=== PATIENT | male | born 1960 | race African-American/Black ===

== ENCOUNTER 2016-06-22 04:37 | Emergency (ER) | payer OTHER ==
[2016-06-22 05:10] VITALS: BP 160/90; PULSE 78; TEMP 98.3; BMI 31.6
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
[2016-06-22] MEDS ORDERED: KETOROLAC TROMETHAMINE 60 MG/2 ML VIAL IM ONE (05:20)
[2016-06-22] MEDS ORDERED: KETOROLAC TROMETHAMINE 60 MG/2 ML VIAL ONE (05:25)
== END 2016-06-22 06:49 | disposition home or self-care (01) ==
LOC: JER 04:37
PROC: 3E0233Z Introduction of Anti-inflammatory into Muscle, Percutaneous Approach (ICD-10-PCS; principal; 2016-06-22)
DX: M62.838 Other muscle spasm (principal)
CPT/HCPCS: 99281-25

== ENCOUNTER 2016-06-26 12:30 | Emergency (ER) | payer OTHER ==
[2016-06-26 12:43] VITALS: BMI 31.6
--- NOTE | 2016-06-26 14:03 | PDOC ---
*Physical Exam - Vital Signs Last Vital Signs Temp Pulse Resp BP Pulse Ox 98.2 F 85 18 158/88 100 06/26/16 12:40 06/26/16 12:40 06/26/16 12:40 06/26/16 12:40 06/26/16 12:40 - Physical Exam Comments: 06/26/16 14:03 MIDLEVEL NOTE Pt seen by Midlevel Provider under my direct supervision. Pt interviewed and examined. Ancillary studies reviewed. I agree with plan as outlined by Midlevel Provider. Laboratory Results - last 24 hr 06/26/16 06/26/16 06/26/16 13:40 13:40 13:40 WBC 5.2 RBC 4.41 Hgb 13.1 Hct 39.5 MCV 89.6 MCHC 33.1 RDW 13.8 Plt Count 289 MPV 8.0 Neutrophils % 41.7 L Lymphocytes % 43.8 H Monocytes % 11.4 H Eosinophils % 1.9 Basophils % 1.2 INR 1.04 PTT (Actin FS) 32.6 Sodium 139 Potassium 4.4 Chloride 102 Carbon Dioxide 27 Anion Gap 10 BUN 14 Creatinine 1.1 Creat Clearance w eGFR > 60 Random Glucose 103 Calcium 9.3 Total Bilirubin 0.5 AST 30 ALT 32 Alkaline Phosphatase 73 Creatine Kinase 415 H CK-MB (CK-2) Rel Index Troponin I < 0.02 Total Protein 7.6 Albumin 4.0 06/26/16 13:40 WBC RBC Hgb Hct MCV MCHC RDW Plt Count MPV Neutrophils % Lymphocytes % Monocytes % Eosinophils % Basophils % INR PTT (Actin FS) Sodium Potassium Chloride Carbon Dioxide Anion Gap BUN Creatinine Creat Clearance w eGFR Random Glucose Calcium Total Bilirubin AST ALT Alkaline Phosphatase Creatine Kinase CK-MB (CK-2) Rel Index Cancelled Troponin I Total Protein Albumin 06/26/16 16:32 Chest x-ray NAD CTA chest There is mild fusiform aneurysmal dilatation of the descending aorta, with a 4 cm maximum diameter No aortic dissection is identified Case discussed with Dr. Ricks, who states patient may be discharged after the second troponin and EKG if unchanged. Patient agrees with plan And will follow-up with his PCP and joinery factory worker Dr. Simon. ED Treatment Course - LABORATORY CBC & Chemistry Diagram: 06/26/16 13:40 06/26/16 13:40 *DC/Admit/Observation/Transfer Diagnosis at time of Disposition: Left sided chest pain - Discharge Dispostion Disposition: HOME Condition at time of disposition: Good - Referrals Referrals: Rupinder Dixon MD [Non Staff, Medical] - Williams Silvestre MD [Primary Care Provider] - - Patient Instructions Printed Discharge Instructions: The DASH Diet, DASH Diet Helps Maintain a Healthy Blood Pressure, DI for Atypical Chest Pain Additional Instructions: At this time you have no cardiac emergency and you may follow-up with your joinery factory worker and your PCP as needed. Please continue to take her medication as prescribed and I have enclosed instructions on hypertensive diet as requested
[2016-06-26 14:10] LABS: BASOPHIL 1.2 % (0-2.0); EOSINOPHIL 1.9 % (0-4.5); MCH 29.7 pg (25.7-33.7); MCHC 33.1 g/dl (32.0-35.9); MEAN CELL VOLUME 89.6 fl (80-96); NEUTROPHILS 41.7 % (42.8-82.8); PLATELET COUNT 289 K/MM3 (134-434); RDW 13.8 % (11.9-15.9); WHITE BLOOD COUNT 5.2 K/mm3 (4.0-10.0)
[2016-06-26 14:33] LABS: INR 1.04 (0.82-1.09); PROTHROMBIN TIME (PATIENT) 11.4 SEC (9.98-11.88)
[2016-06-26 14:36] LABS: ACTIVATED PTT 32.6 SECONDS (26.9-34.4)
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
[2016-06-26 15:14] LABS: ALK PHOS 73 U/L (45-117); ANION GAP 10 (8-16); BILIRUBIN,TOTAL 0.5 mg/dL (0.2-1.0); CALCIUM 9.3 mg/dL (8.5-10.1); CO2 27 mmol/L (21-32); CREATININE 1.1 mg/dL (0.7-1.3); GLUCOSE,RANDOM 103 mg/dL (74-106); SGOT/AST 30 U/L (15-37); SGPT/ALT 32 U/L (12-78); TOT PROT 7.6 g/dl (6.4-8.2)
[2016-06-26 15:15] LABS: TROPONIN I < 0.02 ng/ml (0.00-0.05)
[2016-06-26] MEDS ORDERED: SODIUM CHLORIDE 1,000 ML IV STA (16:50)
[2016-06-26 18:04] VITALS: BP 148/88; PULSE 64; TEMP 98.3
[2016-06-26 18:20] LABS: TROPONIN I < 0.02 ng/ml (0.00-0.05)
--- NOTE | 2016-06-27 12:43 | EKG ---
Test Reason : Blood Pressure : / mmHG Vent. Rate : 069 BPM Atrial Rate : 069 BPM P-R Int : 220 ms QRS Dur : 098 ms QT Int : 420 ms P-R-T Axes : 044 002 -66 degrees QTc Int : 450 ms SINUS RHYTHM WITH 1ST DEGREE A-V BLOCK VOLTAGE CRITERIA FOR LEFT VENTRICULAR HYPERTROPHY T WAVE ABNORMALITY, CONSIDER INFEROLATERAL ISCHEMIA ABNORMAL ECG WHEN COMPARED WITH ECG OF 26-JUN-2016 12:47, NO SIGNIFICANT CHANGE WAS FOUND Confirmed by NEGRO BROOKS MD ([id number]) on 06/27/2016 12:43:38 PM Referred By: Confirmed By:NEGRO BROOKS MD
--- NOTE | 2016-06-27 12:47 | EKG ---
Test Reason : Blood Pressure : / mmHG Vent. Rate : 075 BPM Atrial Rate : 075 BPM P-R Int : 196 ms QRS Dur : 100 ms QT Int : 384 ms P-R-T Axes : 045 007 -42 degrees QTc Int : 428 ms NORMAL SINUS RHYTHM VOLTAGE CRITERIA FOR LEFT VENTRICULAR HYPERTROPHY T WAVE ABNORMALITY, CONSIDER INFEROLATERAL ISCHEMIA ABNORMAL ECG WHEN COMPARED WITH ECG OF 02-FEB-2015 13:09, T WAVE INVERSION MORE EVIDENT IN INFERIOR LEADS T WAVE INVERSION NOW EVIDENT IN LATERAL LEADS Confirmed by NEGRO BROOKS MD ([id number]) on 06/27/2016 12:46:31 PM Referred By: Confirmed By:NEGRO BROOKS MD
== END 2016-06-26 18:51 | disposition home or self-care (01) ==
LOC: JER 12:30
PROC: 3E0337Z Introduction of Electrolytic and Water Balance Substance into Peripheral Vein, Percutaneous Approach (ICD-10-PCS; principal; 2016-06-26)
DX: R07.89 Other chest pain (principal); I10 Essential (primary) hypertension; Z87.891 Personal history of nicotine dependence
CPT/HCPCS: 36415; 71010-TC; 71275-TC; 80053; 82550; 82553; 84484; 85025; 85610; 85730; 93005; 93010; 99285-25

== ENCOUNTER 2016-09-07 22:51 | Emergency (ER) | payer OTHER ==
[2016-09-07 23:03] VITALS: BP 121/78; PULSE 96; TEMP 99.6; BMI 32.3
--- NOTE | 2016-09-07 23:42 | PDOC ---
History of Present Illness - General Chief Complaint: Sore Throat Stated Complaint: SNEEZING; SOAR THROAT; COUGHING Time Seen by Provider: 09/07/16 23:09 History Source: Patient Exam Limitations: No Limitations - History of Present Illness Initial Comments: 09/07/16 23:34 56yo Male patient w/ PmHx: HTN, Aortic Aneurysm, Tonsillitis presents to ED c/o persistent cough on Saturday, that improved , but returned Saturday forcefully. Subjective fever reported. OTC Mucinex with minimal relief. Associated rib, back and neck pain. Denies any other complaints at this time. Severity: reports: moderate Modifying Factors: worse with: activity, albuterol inhaler, albuterol nebulizer , antibiotics, coughing, lying down, oxygen, rest, other Associated Symptoms: reports: cough, fever/chills, headache, other (Back, Neck and Rib pain.) Aspirin Received prior to arrival: Yes: provided at home Past History - Travel Traveled outside of the country in the last 30 days: No Close contact w/someone who was outside of country & ill: No - Past Medical History Allergies/Adverse Reactions: Allergies Allergy/AdvReac Type Severity Reaction Status Date / Time No Known Allergies Allergy Verified 09/07/16 22:58 Home Medications: Ambulatory Orders Amlodipine Besylate 10 mg PO DAILY 06/22/16 Cyclobenzaprine HCl [Flexeril 10 mg] 10 mg PO TID 06/22/16 Aspirin [ASA -] 81 mg PO DAILY 06/26/16 Meloxicam [Mobic (Nf) -] 15 mg PO DAILY 09/07/16 Albuterol Sulfate Inhaler - [Ventolin HFA Inhaler -] 1 - 2 inh PO Q4H PRN #1 inhaler 09/08/16 Azithromycin [Zithromax -] 250 mg PO DAILY #6 tablet 09/08/16 HTN: Yes Other medical history: Aortic aneurysm - Psycho/Social/Smoking Cessation Hx Anxiety: No Suicidal Ideation: No Smoking Status: Yes Smoking History: Former smoker Have you smoked in the past 12 months: Yes Number of Cigarettes Smoked Daily: 10 Information on smoking cessation initiated: No 'Breaking Loose' booklet given: 02/27/14 Hx Alcohol Use: No Drug/Substance Use Hx: No Substance Use Type: None Review of Systems - Review of Systems Able to Perform ROS?: Yes Is the patient limited French proficient: No Constitutional: Yes: Fever (Subjective). No: Chills HEENTM: No: Recent change in vision, Nose Congestion, Nose Bleeding, Dental Problems Respiratory: Yes: Cough, Wheezing. No: Shortness of Breath, Stridor Cardiac (ROS): No: Chest Pain, Lightheadedness, Palpitations, Syncope, Chest Tightness ABD/GI: No: Diarrhea, Nausea, Poor Appetite, Poor Fluid Intake, Vomiting : No: Burning, Dysuria, Hematuria Musculoskeletal: Yes: Back Pain, Neck Pain All Other Systems: Reviewed and Negative *Physical Exam - Vital Signs Last Vital Signs Temp Pulse Resp BP Pulse Ox 99.6 F 96 H 18 121/78 97 09/07/16 22:59 09/07/16 22:59 09/07/16 22:59 09/07/16 22:59 09/07/16 22:59 - Physical Exam General Appearance: Yes: Nourished, Appropriately Dressed, Mild Distress. No: Apparent Distress, Moderate Distress, Severe Distress HEENT: positive: EOMI, BERRY, Normal ENT Inspection, Normal Voice, Symmetrical, TMs Normal, Pharynx Normal. negative: Pharyngeal Erythema, Tonsillar Exudate, Tonsillar Erythema, Nasal Congestion, Rhinorrhea, Sinus Tenderness, TM Bulging, TM Dull, TM Erythema Neck: positive: Trachea midline, Supple. negative: Stridor, Lymphadenopathy (R) , Lymphadenopathy (L), Tender lateral, Tender midline Respiratory/Chest: positive: Wheezing Cardiovascular: positive: Regular Rhythm, Regular Rate Gastrointestinal/Abdominal: positive: Normal Bowel Sounds, Soft, Distended. negative: Tender, Guarding, Rebound, Tenderness Musculoskeletal: positive: Normal Inspection. negative: CVA Tenderness, CVA Tenderness (R), CVA Tenderness (L) Extremity: positive: Normal Capillary Refill, Normal Inspection, Normal Range of Motion. negative: Swelling, Calf Tenderness Integumentary: positive: Normal Color, Dry, Warm Neurologic: positive: industry operations investigator II-XII NML intact, Fully Oriented, Alert, Normal Mood/ Affect, Normal Response, Motor Strength 5/5 ED Treatment Course - LABORATORY CBC & Chemistry Diagram: 09/07/16 23:39 09/07/16 23:39 - RADIOLOGY Radiology Studies Ordered: Category Date Time Status CHEST PA & LAT [RAD] Stat Radiology 09/07/16 23:20 Taken *DC/Admit/Observation/Transfer Diagnosis at time of Disposition: Bronchitis - Discharge Dispostion Disposition: HOME Condition at time of disposition: Stable Admit: No - Prescriptions Prescriptions: Albuterol Sulfate Inhaler - [Ventolin HFA Inhaler -] 1 - 2 inh PO Q4H PRN #1 inhaler PRN Reason: trouble breathing Azithromycin [Zithromax -] 250 mg PO DAILY #6 tablet - Patient Instructions Printed Discharge Instructions: DI for Acute Bronchitis Additional Instructions: FOLLOW UP WITH YOUR PRIMARY CARE PROVIDER. TAKE MEDICATIONS PRESCRIBED. STOP SMOKING AND DRINK PLENTY FLUIDS. Print Language: [place]
[2016-09-07 23:49] LABS: EOSINOPHIL 2.9 % (0-4.5); MCH 29.6 pg (25.7-33.7); MEAN CELL VOLUME 89.8 fl (80-96); MEAN PLT VOLUME 7.7 fl (7.5-11.1); NEUTROPHILS 53.1 % (42.8-82.8); PLATELET COUNT 271 K/MM3 (134-434); RDW 13.8 % (11.9-15.9); WHITE BLOOD COUNT 6.4 K/mm3 (4.0-10.0)
[2016-09-07 23:59] LABS: INR 1.08 (0.82-1.09); PROTHROMBIN TIME (PATIENT) 11.9 SEC (9.98-11.88)
[2016-09-08] LABS: URINE APPEARANCE CLEAR; URINE BILIRUBIN NEGATIVE (NEGATIVE); URINE BLOOD NEGATIVE (NEGATIVE); URINE COLOR LTYELLOW; URINE GLUCOSE (UA) NEGATIVE (NEGATIVE); URINE KETONE NEGATIVE (NEGATIVE); URINE LEUK ESTERASE NEGATIVE (NEGATIVE); URINE NITRITE NEGATIVE (NEGATIVE); URINE PROTEIN NEGATIVE (NEGATIVE); URINE UROBILINOGEN NEGATIVE E.U./dl (0.2-1.0)
[2016-09-08 00:02] LABS: ACTIVATED PTT 33.8 SECONDS (26.9-34.4)
[2016-09-08 00:20] LABS: ANION GAP 11 (8-16); BILIRUBIN,TOTAL 0.3 mg/dL (0.2-1.0); CALCIUM 8.9 mg/dL (8.5-10.1); CO2 26 mmol/L (21-32); COCKROFT - GAULT 84.3; CREATININE 1.5 mg/dL (0.7-1.3); GLUCOSE,RANDOM 113 mg/dL (74-106); SGOT/AST 27 U/L (15-37); SGPT/ALT 25 U/L (12-78); TOT PROT 7.6 g/dl (6.4-8.2)
[2016-09-08 00:22] LABS: ALK PHOS 69 U/L (45-117); TROPONIN I < 0.02 ng/ml (0.00-0.05)
== END 2016-09-08 01:24 | disposition home or self-care (01) ==
LOC: JER 22:51
DX: J40 Bronchitis, not specified as acute or chronic (principal); I10 Essential (primary) hypertension; Z86.79 Personal history of other diseases of the circulatory system
CPT/HCPCS: 36415; 71020-TC; 80053; 81003; 82550; 82553; 84484; 85025; 85610; 85730; 87804; 99282-25

== ENCOUNTER 2016-11-27 15:08 | Emergency (ER) | payer OTHER ==
[2016-11-27 15:22] VITALS: BP 119/70; PULSE 78; TEMP 98.6; BMI 29.5
[2016-11-27] MEDS ORDERED: KETOROLAC TROMETHAMINE 60 MG/2 ML VIAL IM ONE (15:44)
[2016-11-27] MEDS ORDERED: KETOROLAC TROMETHAMINE 60 MG/2 ML VIAL ONE (15:51)
[2016-11-27 15:54] LABS: URINE APPEARANCE CLEAR; URINE BILIRUBIN NEGATIVE (NEGATIVE); URINE BLOOD NEGATIVE (NEGATIVE); URINE COLOR LTYELLOW; URINE GLUCOSE (UA) NEGATIVE (NEGATIVE); URINE KETONE NEGATIVE (NEGATIVE); URINE LEUK ESTERASE NEGATIVE (NEGATIVE); URINE NITRITE NEGATIVE (NEGATIVE); URINE PROTEIN NEGATIVE (NEGATIVE); URINE UROBILINOGEN NEGATIVE mg/dL (0.2-1.0)
--- NOTE | 2016-11-27 15:56 | PDOC ---
History of Present Illness - General Chief Complaint: Pain Stated Complaint: BACK PAIN/SPASMS Time Seen by Provider: 11/27/16 15:29 History Source: Patient Exam Limitations: No Limitations - History of Present Illness Initial Comments: 11/27/16 15:53 CHIEF COMPLAINT: Right lateral lower back spasm HISTORY OF PRESENT ILLNESS: 56-year-old male, history of hypertension and low back pain presents emergency Department with exacerbation and pain to right lateral lower back. Patient states that this is not his normal pain, pain is right under his right lower ribs. Concerned it may be his kidney. Denies any urinary symptoms. No dysuria, no hematuria. No fever. Denies any trauma. Nonradiating pain, no neurosensory deficits, no bowel or bladder difficulty incontinence or urinary retention, no saddle anesthesia, no footdrop. No history of IVDU or history of cancer. REVIEW OF SYSTEMS: GENERAL: Afebrile, denies any weakness RESPIRATORY: No cough, wheezing, or hemoptysis. CARDIAC: No chest pain or shortness of breath MUSCULOSKELETAL: Pain to right lateral lower back, no spinal point tenderness. SKIN : No erythema, no bruising, no deformity. GI/: Denies any abdominal pain, no urinary difficulty, incontinence or urinary retention. RECTAL: Denies any difficulty this A.m. NEUROLOGICAL: Denies any numbness or tingling. No neurosensory deficits. PHYSICAL EXAM: GENERAL: The patient is awake, alert, and fully oriented, in no acute distress. RESPIRATORY: Lungs clear bilaterally, no rhonchi wheezes or crackles CARDIAC: S1-S2 audible, no murmur rub or gallop MUSCULOSKELETAL: Pain to generalized lower back, nonradiating, no tingling or sensory deficit. Less than 2 second cap refill, +4 popliteal and pedal pulses. GI/: Abdomen soft, nontender, nondistended. No rebound tenderness. No masses palpable. MUSCULOSKELETAL: No spinal point tenderness. Normal reflexive and no deficits to sensation or strength. RECTAL: Deferred patient with no neurological findings SKIN: Warm, Dry, normal turgor, no erythema, no edema no bruising. Past History - Past Medical History Allergies/Adverse Reactions: Allergies Allergy/AdvReac Type Severity Reaction Status Date / Time No Known Allergies Allergy Verified 11/27/16 15:17 Home Medications: Ambulatory Orders Amlodipine Besylate 10 mg PO DAILY 06/22/16 Aspirin [ASA -] 81 mg PO DAILY 06/26/16 Albuterol Sulfate Inhaler - [Ventolin HFA Inhaler -] 1 - 2 inh PO Q4H PRN #1 inhaler 09/08/16 Cyclobenzaprine HCl [Flexeril -] 10 mg PO TID #21 tablet 11/27/16 Ibuprofen [Motrin -] 600 mg PO QID #28 tablet 11/27/16 HTN: Yes - Psycho/Social/Smoking Cessation Hx Anxiety: No Suicidal Ideation: No Smoking Status: Yes Smoking History: Current every day smoker Have you smoked in the past 12 months: Yes Number of Cigarettes Smoked Daily: 10 Information on smoking cessation initiated: No 'Breaking Loose' booklet given: 02/27/14 Hx Alcohol Use: No Drug/Substance Use Hx: No Substance Use Type: None *Physical Exam - Vital Signs Last Vital Signs Temp Pulse Resp BP Pulse Ox 98.6 F 78 18 119/70 97 11/27/16 15:17 11/27/16 15:17 11/27/16 15:17 11/27/16 15:17 11/27/16 15:17 Medical Decision Making - Medical Decision Making 11/27/16 15:55 A/P: Patient right lateral lower back pain, back spasm versus kidney stone, will send urinalysis to rule out blood in urine Toradol 60 mg IM times one given. 11/27/16 16:06 Laboratory Results - last 24 hr 11/27/16 15:36 Urine Color Ltyellow Urine Appearance Clear Urine pH 5.0 Urine Protein Negative Urine Glucose (UA) Negative Urine Ketones Negative Urine Blood Negative Urine Nitrite Negative Urine Bilirubin Negative Urine Urobilinogen Negative Ur Leukocyte Esterase Negative Urine analysis is negative, clinical findings suggestive of back spasm, will assess pain level after Toradol 11/27/16 16:48 Patient states relief after Toradol, will DC patient home on Flexeril and Motrin. I discussed the physical exam findings, ancillary test results and final diagnoses with the patient. I answered all of the patient's questions. The patient was satisfied with the care received and felt comfortable with the discharge plan and treatment plan. The patient will call to arrange follow-up and will return to the Emergency Department with any new, persistent or worsening symptoms. 11/27/16 16:52 *DC/Admit/Observation/Transfer Diagnosis at time of Disposition: Muscle spasm - Discharge Dispostion Disposition: HOME Condition at time of disposition: Good Admit: No - Prescriptions Prescriptions: Cyclobenzaprine HCl [Flexeril -] 10 mg PO TID #21 tablet Ibuprofen [Motrin -] 600 mg PO QID #28 tablet - Referrals Referrals: Williams Silvestre MD [Primary Care Provider] - - Patient Instructions Printed Discharge Instructions: DI for Back Spasm
== END 2016-11-27 16:54 | disposition home or self-care (01) ==
LOC: JERFT 15:08
PROC: 3E0333Z Introduction of Anti-inflammatory into Peripheral Vein, Percutaneous Approach (ICD-10-PCS; principal; 2016-11-27)
DX: M62.830 Muscle spasm of back (principal); I10 Essential (primary) hypertension
CPT/HCPCS: 81003; 99281-25

== ENCOUNTER 2017-08-29 20:03 | Emergency (ER) | payer OTHER ==
--- NOTE | 2017-08-29 20:08 | PDOC ---
Rapid Medical Evaluation Medical Evaluation: Allergies Allergy/AdvReac Type Severity Reaction Status Date / Time No Known Allergies Allergy Verified 11/27/16 15:17 08/29/17 20:05 I have performed a brief in-person evaluation of this patient. The patient presents with a chief complaint of pain in back of neck since last Saturday, states pain is not relieved by hot and cold compress Tood no medication so far. Pertinent physical exam findings: NAD HEENT: neck supple, ROM without pain, no mid cervical spine tenderness I have ordered the following: analgesia The patient will proceed to the ED for further evaluation. <Eve Mcdaniel - Last Filed: 08/29/17 20:05> Medical Evaluation: Allergies Allergy/AdvReac Type Severity Reaction Status Date / Time No Known Allergies Allergy Verified 08/29/17 20:06 Vital Signs Temp Pulse Resp BP Pulse Ox 98.3 F 83 18 145/71 96 08/29/17 20:06 08/29/17 20:06 08/29/17 20:06 08/29/17 20:06 08/29/17 20:06 <Myah Ascencio - Last Filed: 08/29/17 21:15> Time Seen by Provider: 08/29/17 20:05 Discharge Disposition <Eve Mcdaniel - Last Filed: 08/29/17 20:05> <Myah Ascencio - Last Filed: 08/29/17 21:15> - Diagnosis Neck pain - Discharge Dispostion Disposition: ELOPED - Referrals Referrals: Williams Silvestre MD [Primary Care Provider] - - Patient Instructions - Post Discharge Activity
[2017-08-29 20:09] VITALS: BP 145/71; PULSE 83; TEMP 98.3; BMI 32.4
[2017-08-29] MEDS ORDERED: KETOROLAC TROMETHAMINE 30 MG/1 ML VIAL IM ONE (20:09)
[2017-08-29] MEDS ORDERED: CYCLOBENZAPRINE HCL 10 MG TABLET (FP) PO ONE (20:09)
== END 2017-08-29 21:16 | disposition left against medical advice (07) ==
LOC: JERFT 20:03
DX: M54.2 Cervicalgia (principal)
CPT/HCPCS: 99281-25

== ENCOUNTER 2019-04-20 10:27 | Emergency (ER) | payer OTHER ==
[2019-04-20 10:33] VITALS: BMI 31.6
--- NOTE | 2019-04-20 12:05 | PDOC ---
History of Present Illness - General Chief Complaint: Injury Stated Complaint: FALL/INJURY/DIZZINESS History Source: Patient Exam Limitations: No Limitations - History of Present Illness Initial Comments: 59 yo M with a hx of HTN and hypo vs hyperthyroid (patient is unsure) presents to the emergency department s/p fall that occurred 04/18/2019 (2 days ago) with residual headache and neck pain with new onset of lightheadedness today. Per the patient, he stated he was participating in the [employer] activity (a wind tunnel with vertical lift) 04/20/19 12:29 Past History - Past Medical History Allergies/Adverse Reactions: Allergies Allergy/AdvReac Type Severity Reaction Status Date / Time No Known Allergies Allergy Verified 04/20/19 10:33 Home Medications: Ambulatory Orders Unobtainable 04/20/19 COPD: No HTN: Yes - Psycho Social/Smoking Cessation Hx Smoking Status: Yes Smoking History: Current every day smoker Have you smoked in the past 12 months: Yes Number of Cigarettes Smoked Daily: 10 Information on smoking cessation initiated: No 'Breaking Loose' booklet given: 02/27/14 Hx Alcohol Use: No Drug/Substance Use Hx: No Substance Use Type: None *Physical Exam - Vital Signs Last Vital Signs Temp Pulse Resp BP Pulse Ox 97.7 F 65 16 158/85 99 04/20/19 10:29 04/20/19 10:29 04/20/19 10:29 04/20/19 10:29 04/20/19 10:29 - Physical Exam General Appearance: Yes: Nourished, Appropriately Dressed. No: Apparent Distress, Intoxicated HEENT: positive: EOMI, BERRY, Normal ENT Inspection, Normal Voice, Symmetrical, TMs Normal, Pharynx Normal, Hearing Grossly Normal. negative: Pale Conjunctivae , Scleral Icterus (R), Scleral Icterus (L), Muffled/Hoarse voice, Pharyngeal Erythema, Tonsillar Exudate, Tonsillar Erythema, Nasal Congestion, Rhinorrhea, Sinus Tenderness, Hearing Decreased, Excessive drooling Neck: positive: Tender (C7 mid line tenderness), Trachea midline, Supple. negative: Lymphadenopathy (R), Lymphadenopathy (L) Respiratory/Chest: positive: Lungs Clear, Normal Breath Sounds. negative: Chest Tender, Respiratory Distress, Accessory Muscle Use, Rhonchi, Stridor, Wheezing, Hyperresonant Cardiovascular: positive: Regular Rhythm, Regular Rate, S1, S2, Systolic Murmur (grade 1) Gastrointestinal/Abdominal: positive: Normal Bowel Sounds, Flat, Soft. negative : Tender, Distended, Guarding, Rebound Lymphatic: negative: Adenopathy Musculoskeletal: positive: Normal Inspection, Vertebral Tenderness (cervical c7 midline. tenderness to the left rhomboid minor and major. tenderness to the left and right trapezius. negative empty can and neers test. ). negative: CVA Tenderness Extremity: positive: Normal Capillary Refill, Normal Range of Motion, Tender ( right olecrenon). negative: Normal Inspection (mild swelling on the right olecrenon without warm to the touch. no fluctuance. ), Swelling, Calf Tenderness Integumentary: positive: Normal Color, Dry, Warm. negative: Swelling, Ecchymosis Neurologic: positive: spareribs trimmer II-XII NML intact, Fully Oriented, Alert, Normal Mood/ Affect, Normal Response, Motor Strength 5/5. negative: Numbness, Sensory Deficit, Finger to Nose ED Treatment Course - LABORATORY CBC & Chemistry Diagram: 04/20/19 13:20 04/20/19 13:20 Discharge - Discharge Information Problems reviewed: Yes Clinical Impression/Diagnosis: Concussion Disposition: HOME - Admission No - Follow up/Referral Referrals: Williams Silvestre MD [Primary Care Provider] - Florencio Evangelista MD [Staff Physician] - - Patient Discharge Instructions Patient Printed Discharge Instructions: DI for Concussion, DI for Postconcussion Syndrome Additional Instructions: you were seen for the evaluation of your lightheadedness with headache after your fall. Your imaging was negative for acute processes and your labs were within normal limits. Please follow up with your primary medical doctor within 1 week after discharge for follow up care and management. Please return to the emergency department if you have worsening pain or new concerning symptoms. Thank you. Please refer to the concussion materials for information. Thank you again. Please follow up with the neurologist in 1 week if symptoms persist that is referred to you. Please refrain from physical activities for 3 days and abstain from activities that can injure the head for 7-10 days. You can return to work in 3 days. Thank you. - Post Discharge Activity Work/Back to School Note: Back to Work
[2019-04-20] MEDS ORDERED: ACETAMINOPHEN 1000 MG/100 ML VIAL (NON FORMULARY) IVPB ONE (12:25)
[2019-04-20] MEDS ORDERED: ACETAMINOPHEN INJECTION 100 ML IVPB ONE (13:05)
[2019-04-20 13:46] LABS: BASO % 1.4 % (0-2.0); EOS % 2.4 % (0-4.5); HEMATOCRIT 43.7 % (35.4-49); HEMOGLOBIN 14.5 GM/dL (11.7-16.9); LYMPH % 46.8 % (8-40); MCH 30.8 pg (25.7-33.7); MCHC 33.3 g/dl (32.0-35.9); MEAN CELL VOLUME 92.4 fl (80-96); MEAN PLT VOLUME 7.7 fl (7.5-11.1); MONO % 7.7 % (3.8-10.2); NEUT % 41.7 % (42.8-82.8); PLATELET COUNT 287 K/MM3 (134-434); RBC 4.72 M/mm3 (4.00-5.60); RDW 14.2 % (11.9-15.9); WHITE BLOOD COUNT 5.4 K/mm3 (4.0-10.0)
[2019-04-20 13:56] LABS: PROTHROMBIN TIME (PATIENT) 11.8 SEC (9.7-13.0)
[2019-04-20] MEDS ORDERED: SODIUM CHLORIDE 1,000 ML IV STA (14:03)
[2019-04-20 14:27] LABS: BILIRUBIN,TOTAL 0.3 mg/dL (0.2-1); BLOOD UREA NITROGEN 10.4 mg/dL (7-18); CALCIUM 9.5 mg/dL (8.5-10.1); CREATININE 1.2 mg/dL (0.55-1.3); POTASSIUM 4.2 mmol/L (3.5-5.1); TOT PROT 8.1 g/dl (6.4-8.2)
--- NOTE | 2019-04-20 15:45 | PDOC ---
Documentation entered by Michael Dumont SCRIBE, acting as scribe for Forrest Damon MD. Forrest Damon MD: This documentation has been prepared by the Tim dupont Xhesika, SCRIBE, under my direction and personally reviewed by me in its entirety. I confirm that the documentation accurately reflects all work, treatment, procedures, and medical decision making performed by me. Attending Attestation - Resident Resident Name: Broderick Valenzuela - ED Attending Attestation I have performed the following: I have examined & evaluated the patient, The case was reviewed & discussed with the resident, I agree w/resident's findings & plan, Exceptions are as noted - HPI HPI: 04/20/19 14:52 The patient is a 59 year old male with a PMH of HTN and thyroid disease ( hypo vs hyperthyroid- patient is unsure) who presents to the ED for occipital headache, neck pain and unsteady gait s/p participating in an [employer] activity 2 days ago. Pt states he was coming out of the [employer] tunnel when he hit his head and R side of his body on the ground trying to come out of the tunnel. Pt reports new onset of lightheadedness today, prompting his arrival to the ED. The patient denies shortness of breath, and dizziness. Denies fever, chills, cough, nausea, vomiting, and constipation. Denies dysuria, frequency, urgency and hematuria. Allergy: NKDA Social: Denies alcohol, cigarette or drug use. - Physicial Exam PE: 04/20/19 15:45 Vitals: Triage Vital signs reviewed General Appearance: No acute distress, well nourished well developed, Head: Atraumatic, Eyes: Pupils equal reactive round, extraocular movement intact Cardiac: Regular rate and rhythym, no murmurs, no rubs, no gallops, Lungs: Clear to auscultation bilateral, good air movement bilaterally, Abdomen: Soft, non distended, normal bowel sounds, non tender to palpation Extremities: Full range of motion to all extremities, no cyanosis, clubbing, or edema Skin: Warm and dry, no rashes or lesions, no rash, no petechiae Neuro: strength intact to all extremities, sensation intact to all extremities , gait normal Psych: Normal mood, normal affect - Medical Decision Making 04/20/19 15:46 Well-appearing no apparent distress with signs and symptoms consistent with concussion CT head neck negative for any acute pathology will recommend neuro follow-up within 1 week if still with signs and symptoms of concussion Findings, need for follow-up and strict return instructions discussed with patient.
[2019-04-20 16:35] VITALS: BP 152/76; PULSE 52; TEMP 97.6
--- NOTE | 2019-04-21 12:44 | EKG ---
Test Reason : Blood Pressure : / mmHG Vent. Rate : 054 BPM Atrial Rate : 054 BPM P-R Int : 218 ms QRS Dur : 100 ms QT Int : 428 ms P-R-T Axes : 044 021 -17 degrees QTc Int : 405 ms SINUS BRADYCARDIA WITH 1ST DEGREE A-V BLOCK VOLTAGE CRITERIA FOR LEFT VENTRICULAR HYPERTROPHY NONSPECIFIC T WAVE ABNORMALITY ABNORMAL ECG WHEN COMPARED WITH ECG OF 26-JUN-2016 17:54, T WAVE INVERSION NO LONGER EVIDENT IN ANTEROLATERAL LEADS Confirmed by MD Walter, Irivng ([id number]) on 04/21/2019 12:43:52 PM Referred By: Confirmed By:Irving Watson MD
== END 2019-04-20 16:25 | disposition home or self-care (01) ==
LOC: JER 10:27
PROC: 3E033NZ Introduction of Analgesics, Hypnotics, Sedatives into Peripheral Vein, Percutaneous Approach (ICD-10-PCS; principal; 2019-04-20)
DX: S06.0X0A Concussion without loss of consciousness, initial encounter (principal); W01.198A Fall on same level from slipping, tripping and stumbling with subsequent striking against other object, initial encounter; Y93.89 Activity, other specified; Y92.39 Other specified sports and athletic area as the place of occurrence of the external cause; Y99.8 Other external cause status; I10 Essential (primary) hypertension
CPT/HCPCS: 36415; 70450-TC; 71045-TC-FY; 72125-TC; 73030-TC-LT-FY; 73070-TC-RT-FY; 80053; 82550; 82553; 84443; 84484; 85025; 85610; 93005; 93010; 99284-25; J0131; J7030

== ENCOUNTER 2020-09-15 14:35 | Emergency (ER) | payer OTHER ==
[2020-09-15 14:44] VITALS: BP 158/82; PULSE 68; TEMP 98.7; BMI 29.7
[2020-09-15] MEDS ORDERED: DEXAMETHASONE SOD PHOSPHATE 10 MG/1 ML VIAL IM ONE (14:49)
[2020-09-15] MEDS ORDERED: FAMOTIDINE 20 MG TABLET ONE (14:52)
[2020-09-15] MEDS ORDERED: DEXAMETHASONE SOD PHOSPHATE 10 MG/1 ML VIAL ONE (14:52)
[2020-09-15] MEDS ORDERED: FAMOTIDINE 20 MG TABLET PO ONE (14:57)
== END 2020-09-15 15:24 | disposition home or self-care (01) ==
LOC: JERFT 14:35
PROC: 3E023GC Introduction of Other Therapeutic Substance into Muscle, Percutaneous Approach (ICD-10-PCS; principal; 2020-09-15)
PROC: 3E023GC Introduction of Other Therapeutic Substance into Muscle, Percutaneous Approach (ICD-10-PCS; 2020-09-15)
DX: T63.441A Toxic effect of venom of bees, accidental (unintentional), initial encounter (principal); Z91.030 Bee allergy status
CPT/HCPCS: 99284-25; J1100

== ENCOUNTER 2020-11-17 12:15 | Emergency (ER) | payer OTHER ==
[2020-11-17 12:23] VITALS: BMI 29.7
[2020-11-17] MEDS ORDERED: ACETAMINOPHEN 1000 MG/100 ML VIAL (NON FORMULARY) IVPB ONE (12:52)
[2020-11-17] MEDS ORDERED: SODIUM CHLORIDE 0.9% 500 ML INFUS.BAG IV ONE (12:52)
[2020-11-17] MEDS ORDERED: ACETAMINOPHEN INJECTION 100 ML IVPB ONE (12:55)
[2020-11-17 12:58] LABS: BASO % 0.7 % (0-2.0); EOS % 2.3 % (0-4.5); HEMOGLOBIN 14.1 GM/dL (11.7-16.9); LYMPH % 40.8 % (8-40); MCH 31.4 pg (25.7-33.7); MCHC 33.6 g/dl (32.0-35.9); MEAN CELL VOLUME 93.3 fl (80-96); MEAN PLT VOLUME 7.2 fl (7.5-11.1); MONO % 9.8 % (3.8-10.2); NEUT % 46.4 % (42.8-82.8); PLATELET COUNT 291 10^3/uL (134-434); RDW 13.9 % (11.9-15.9); WHITE BLOOD COUNT 6.4 K/mm3 (4.0-10.0)
[2020-11-17 13:04] LABS: PROTHROMBIN TIME (PATIENT) 12.1 SEC (9.7-13.0)
[2020-11-17 13:07] LABS: ACTIVATED PTT 31.6 SECONDS (25.2-36.5)
[2020-11-17 13:18] LABS: ALBUMIN 4.2 g/dl (3.4-5.0); BLOOD UREA NITROGEN 13.8 mg/dL (7-18)
[2020-11-17 13:21] LABS: CREATININE 1.2 mg/dL (0.55-1.3)
[2020-11-17 13:22] LABS: BILIRUBIN,TOTAL 0.3 mg/dL (0.2-1); TOT PROT 7.6 g/dl (6.4-8.2)
[2020-11-17] MEDS ORDERED: ONDANSETRON 4 MG/2 ML VIAL IVPUSH ONE (13:26)
[2020-11-17] MEDS ORDERED: ONDANSETRON 4 MG/2 ML VIAL ONE ×2 (14:10→14:15)
[2020-11-17 15:20] VITALS: BP 132/65; PULSE 75; TEMP 98
== END 2020-11-17 15:00 | disposition home or self-care (01) ==
LOC: JER 12:15
PROC: 3E033NZ Introduction of Analgesics, Hypnotics, Sedatives into Peripheral Vein, Percutaneous Approach (ICD-10-PCS; principal; 2020-11-17)
PROC: 3E033GC Introduction of Other Therapeutic Substance into Peripheral Vein, Percutaneous Approach (ICD-10-PCS; 2020-11-17)
DX: M54.9 Dorsalgia, unspecified (principal); W19.XXXA Unspecified fall, initial encounter; Y92.9 Unspecified place or not applicable
CPT/HCPCS: 36415; 70450-TC; 71260-TC; 72125-TC; 72128-TC; 72131-TC; 74177-TC; 80053; 85025; 85610; 85730; 86850; 86900; 86901; 93005; 93010; 99285-25; J0131; Q9967

== ENCOUNTER 2021-05-31 12:14 | Emergency (ER) | payer OTHER ==
[2021-05-31 12:20] VITALS: BP 168/87; PULSE 67; TEMP 97.8; BMI 29.7
== END 2021-05-31 14:17 | disposition home or self-care (01) ==
LOC: JERFT 12:14
DX: S20.229A Contusion of unspecified back wall of thorax, initial encounter (principal); W17.89XA Other fall from one level to another, initial encounter; W31.83XA Contact with special construction vehicle in stationary use, initial encounter
CPT/HCPCS: 71046-TC-FY; 71111-TC-FY; 72050-TC-FY; 72070-TC-FY; 72100-TC-FY; 99285-25

== ENCOUNTER 2021-10-15 13:38 | Observation (INO) | payer BC, OTHER ==
[2021-10-15 13:45] VITALS: BMI 30.3
[2021-10-15] MEDS ORDERED: ACETAMINOPHEN 1000 MG/100 ML BAG IVPB ONE (14:44)
[2021-10-15] MEDS ORDERED: SODIUM CHLORIDE 1,000 ML IV STA (14:44)
[2021-10-15] MEDS ORDERED: KETOROLAC TROMETHAMINE 30 MG/1 ML VIAL IVPUSH ONE (14:44)
[2021-10-15] MEDS ORDERED: PANTOPRAZOLE SODIUM 40 MG VIAL IVPB ONE (14:44)
[2021-10-15] MEDS ORDERED: METOCLOPRAMIDE HCL INJECTION 10 MG/2 ML VIAL IVPUSH ONE (14:44)
[2021-10-15] MEDS ORDERED: ASPIRIN 81 MG CHEWABLE TABLETS PO ONE (14:57)
[2021-10-15] MEDS ORDERED: ASPIRIN 81 MG CHEWABLE TABLETS ONE (15:13)
[2021-10-15] MEDS ORDERED: METOCLOPRAMIDE HCL INJECTION 10 MG/2 ML VIAL ONE (15:13)
[2021-10-15] MEDS ORDERED: KETOROLAC TROMETHAMINE 30 MG/1 ML VIAL ONE (15:14)
[2021-10-15] MEDS ORDERED: ACETAMINOPHEN INJECTION 100 ML IVPB ONE (15:14)
[2021-10-15] MEDS ORDERED: PANTOPRAZOLE SODIUM 40 MG VIAL ONE (15:14)
[2021-10-15 16:02] LABS: HEMOGLOBIN 14.3 GM/dL (11.7-16.9); MCH 31.1 pg (25.7-33.7); MCHC 33.4 g/dl (32.0-35.9); MEAN CELL VOLUME 93.2 fl (80-96); MEAN PLT VOLUME 8.4 fl (7.5-11.1); PLATELET COUNT 214 10^3/uL (134-434); RBC 4.61 M/mm3 (4.00-5.60); RDW 13.7 % (11.9-15.9); WHITE BLOOD COUNT 7.4 K/mm3 (4.0-10.0)
[2021-10-15 16:20] LABS: ALBUMIN 3.9 g/dl (3.4-5.0); CALCIUM 9.1 mg/dL (8.5-10.1); MAGNESIUM 2.4 mg/dL (1.8-2.4)
[2021-10-15 16:21] LABS: BLOOD UREA NITROGEN 11.8 mg/dL (7-18)
[2021-10-15 16:23] LABS: CREATININE 1.5 mg/dL (0.55-1.3); PHOSPHOROUS 4.7 mg/dL (2.5-4.9)
[2021-10-15 16:25] LABS: BILIRUBIN,TOTAL 0.2 mg/dL (0.2-1); TOT PROT 8.2 g/dl (6.4-8.2)
[2021-10-15 17:36] LABS: ANISOCYTOSIS 0; MACROCYTOSIS 0; PLATELET ESTIMATE NORMAL
[2021-10-15] MEDS ORDERED: SODIUM CHLORIDE 1,000 ML IV SCH (18:00)
[2021-10-15] MEDS ORDERED: DEXTROSE 5%-NORMAL SALINE 1,000 ML IV SCH (18:45)
[2021-10-15] MEDS ORDERED: ACETAMINOPHEN 325 MG TABLET (FP) ONE (19:59)
[2021-10-15] MEDS: ACETAMINOPHEN 325 MG TABLET (FP) PO PRN (20:10)
[2021-10-15 20:18] LABS: URINE APPEARANCE CLEAR; URINE BILIRUBIN NEGATIVE (NEGATIVE); URINE COLOR YELLOW; URINE GLUCOSE (UA) NEGATIVE (NEGATIVE); URINE KETONE NEGATIVE (NEGATIVE); URINE LEUK ESTERASE NEGATIVE (NEGATIVE); URINE NITRITE NEGATIVE (NEGATIVE); URINE PROTEIN NEGATIVE (NEGATIVE); URINE UROBILINOGEN 0.2 mg/dL (0.2-1.0)
[2021-10-15] MEDS ORDERED: FAMOTIDINE 20 MG TABLET ONE (22:57)
[2021-10-15] MEDS: FAMOTIDINE 20 MG TABLET PO SCH (23:00)
[2021-10-16] MEDS ORDERED: ACETAMINOPHEN 325 MG TABLET (FP) ONE ×3 (03:29→11:54)
[2021-10-16] MEDS: ACETAMINOPHEN 325 MG TABLET (FP) PO PRN (03:30)
[2021-10-16] MEDS ORDERED: ASPIRIN 81 MG CHEWABLE TABLETS ONE (09:05)
[2021-10-16] MEDS ORDERED: FAMOTIDINE 20 MG TABLET ONE (09:05)
[2021-10-16] MEDS: FAMOTIDINE 20 MG TABLET PO SCH (09:14)
[2021-10-16] MEDS ORDERED: ASPIRIN 81 MG CHEWABLE TABLETS PO SCH (10:00)
[2021-10-16 10:02] LABS: HEMATOCRIT 40.6 % (35.4-49); HEMOGLOBIN 13.5 GM/dL (11.7-16.9); MCH 30.8 pg (25.7-33.7); MCHC 33.2 g/dl (32.0-35.9); MEAN CELL VOLUME 92.7 fl (80-96); MEAN PLT VOLUME 8.1 fl (7.5-11.1); PLATELET COUNT 188 10^3/uL (134-434); RBC 4.38 M/mm3 (4.00-5.60); RDW 13.7 % (11.9-15.9); WHITE BLOOD COUNT 5.1 K/mm3 (4.0-10.0)
[2021-10-16 10:07] LABS: CREATININE 1.1 mg/dL (0.55-1.3)
[2021-10-16 10:08] LABS: CALCIUM 8.5 mg/dL (8.5-10.1)
[2021-10-16 10:09] LABS: ALBUMIN 3.3 g/dl (3.4-5.0); BILIRUBIN,TOTAL 0.2 mg/dL (0.2-1); BLOOD UREA NITROGEN 13.7 mg/dL (7-18); TOT PROT 7.1 g/dl (6.4-8.2)
[2021-10-16 10:39] LABS: ANISOCYTOSIS 0; MACROCYTOSIS 0
[2021-10-16] MEDS ORDERED: METOPROLOL TARTRATE 25 MG TABLET (FP) ONE (11:54)
[2021-10-16] MEDS ORDERED: HYDROCHLOROTHIAZIDE 25 MG TABLET (FP) ONE (11:54)
[2021-10-16] MEDS ORDERED: METOPROLOL TARTRATE 25 MG TABLET (FP) PO SCH ×2 (12:00)
[2021-10-16] MEDS ORDERED: HYDROCHLOROTHIAZIDE 12.5 MG CAPSULE (FP) PO SCH (12:00)
[2021-10-16 13:01] VITALS: BP 143/79; PULSE 64; TEMP 98.7
== END 2021-10-16 13:00 | disposition home or self-care (01) ==
LOC: JER 13:38 → JERBED 17:40
PROVIDERS: ADMIT Internal Medicine; ATTEND Internal Medicine
PROC: 3E033NZ Introduction of Analgesics, Hypnotics, Sedatives into Peripheral Vein, Percutaneous Approach (ICD-10-PCS; principal; 2021-10-15)
PROC: 3E0337Z Introduction of Electrolytic and Water Balance Substance into Peripheral Vein, Percutaneous Approach (ICD-10-PCS; 2021-10-15)
PROC: 3E033GC Introduction of Other Therapeutic Substance into Peripheral Vein, Percutaneous Approach (ICD-10-PCS; 2021-10-15)
DX: U07.1 COVID-19 (principal); I10 Essential (primary) hypertension; R19.7 Diarrhea, unspecified; R51.9 Headache, unspecified; R10.13 Epigastric pain; E66.9 Obesity, unspecified; Z68.30 Body mass index [BMI] 30.0-30.9, adult
CPT/HCPCS: 0241U-QW; 36415; 70450-TC; 71046-TC-FY; 80053; 80061; 81003; 82728; 83690; 83735; 84100; 84443; 84484; 85025; 86140; 96361; 96374; 96375; 99285-25; G0378

== ENCOUNTER 2023-03-10 13:00 | Emergency (ER) | payer BC ==
[2023-03-10 13:07] VITALS: BP 148/82; PULSE 67; RESP 18; TEMP 98; BMI 28.6
[2023-03-10] MEDS ORDERED: ACETAMINOPHEN 500 MG TABLET (FP) PO ONE (14:53)
== END 2023-03-10 15:09 | disposition home or self-care (01) ==
LOC: JERFT 13:00
DX: M54.2 Cervicalgia (principal); M62.838 Other muscle spasm
CPT/HCPCS: 99283-25

== ENCOUNTER 2023-04-17 04:35 | Day surgery (SDC) | payer BC ==
[2023-04-12 16:06] VITALS: BMI 28.6
[~2023-04-17 04:35] MED LIST: ACETAMINOPHEN 325 MG TABLET (FP) PO PRN; CHONDROITIN SU A/HYALUR SOD 1 KIT IO ONE
[2023-04-17 10:11] VITALS: RESP 20; TEMP 97.3
[2023-04-17] MEDS ORDERED: OFLOXACIN 0.3% OPHTHALMIC SOLUTION 5 ML BOTTLE ONE (10:20)
[2023-04-17] MEDS ORDERED: TROPICAMIDE 1% OPHTH SOLN 15 ML BOTTLE ONE (10:20)
[2023-04-17] MEDS ORDERED: CYCLOPENTOLATE HCL 1% OPHTH SOLN 2 ML BOTTLE ONE (10:20)
[2023-04-17] MEDS ORDERED: KETOROLAC TROMETHAMINE 0.5% EYE DROP 1 DROP DROPS ONE (10:20)
[2023-04-17] MEDS: PHENYLEPHRINE 2.5% OPHTH SOLN 15 ML BOTTLE OP SCH ×3 (10:25→11:06)
[2023-04-17] MEDS: KETOROLAC TROMETHAMINE 0.5% EYE DROP 1 DROP DROPS OP SCH ×3 (10:25→11:07)
[2023-04-17] MEDS: CYCLOPENTOLATE HCL 1% OPHTH SOLN 2 ML BOTTLE OP SCH ×3 (10:25→11:07)
[2023-04-17] MEDS: OFLOXACIN 0.3% OPHTHALMIC SOLUTION 5 ML BOTTLE OP SCH ×3 (10:25→11:07)
[2023-04-17] MEDS: TROPICAMIDE 1% OPHTH SOLN 15 ML BOTTLE OP SCH ×3 (10:25→11:06)
[2023-04-17] MEDS ORDERED: PHENYLEPHRINE 2.5% OPTHALMIC DROP 2ML BOTTLE ONE (10:36)
[2023-04-17] MEDS ORDERED: MIDAZOLAM HCL 2 MG/2 ML SINGLE DOSE VIAL ONE (12:03)
[2023-04-17] MEDS ORDERED: ONDANSETRON 4 MG/2 ML VIAL ONE (12:04)
[2023-04-17] MEDS ORDERED: PROPOFOL 20 ML ONE (12:13)
[2023-04-17] MEDS ORDERED: BUPIVACAINE 0.75% IN DEXTROSE/PF 2ML AMPULE NR ONE (12:16)
[2023-04-17] MEDS ORDERED: LIDOCAINE HCL 2% (50ML VIAL) SQ ONE (12:16)
[2023-04-17] MEDS ORDERED: TETRACAINE 0.5% OPHTH SOLN 2 ML BOTTLE OS ONE (12:17)
[2023-04-17] MEDS ORDERED: POVIDONE-IODINE 5% OPHTHALMIC PREP 30 ML SOLUTION OS ONE (12:18)
[2023-04-17] MEDS ORDERED: LIDOCAINE HCL 1% PRESERVATIVE FREE - 30ML VIAL IO ONE (12:27)
[2023-04-17] MEDS ORDERED: BSS (NA/CA/MG/K) BALANCED SALT SOLUTION OPHTH SOLN 15 ML BOTTLE OS ONE (12:36)
[2023-04-17] MEDS ORDERED: EPINEPHrine/PF 1 MG/1 ML (1:1,000) AMPULE SQ ONE (12:36)
[2023-04-17] MEDS ORDERED: CHONDROITIN SU A/HYALUR SOD 1 KIT IO ONE (12:41)
[2023-04-17 13:07] VITALS: PULSE 52
[2023-04-17 14:05] VITALS: BP 122/70
== END 2023-04-17 13:45 | disposition home or self-care (01) ==
LOC: JASU-SURG 04:35
PROVIDERS: ATTEND Ophthalmology
PROC: 08RK3JZ Replacement of Left Lens with Synthetic Substitute, Percutaneous Approach (ICD-10-PCS; principal; 2023-04-17 12:00)
DX: H26.9 Unspecified cataract (principal)
CPT/HCPCS: V2632

== ENCOUNTER 2023-05-01 04:15 | Day surgery (SDC) | payer BC ==
[2023-04-25 12:30] VITALS: BMI 28.6
[~2023-05-01 04:15] MED LIST changes: -CHONDROITIN SU A/HYALUR SOD 1 KIT IO ONE
[2023-05-01] MEDS ORDERED: PHENYLEPHRINE 2.5% OPTHALMIC DROP 2ML BOTTLE ONE (06:04)
[2023-05-01] MEDS ORDERED: OFLOXACIN 0.3% OPHTHALMIC SOLUTION 5 ML BOTTLE ONE (06:04)
[2023-05-01] MEDS ORDERED: KETOROLAC TROMETHAMINE 0.5% EYE DROP 1 DROP DROPS ONE (06:04)
[2023-05-01] MEDS ORDERED: TROPICAMIDE 1% OPHTH SOLN 15 ML BOTTLE ONE (06:04)
[2023-05-01] MEDS ORDERED: CYCLOPENTOLATE HCL 1% OPHTH SOLN 2 ML BOTTLE ONE (06:04)
[2023-05-01] MEDS: KETOROLAC TROMETHAMINE 0.5% EYE DROP 1 DROP DROPS OP SCH ×3 (06:55→07:05)
[2023-05-01] MEDS: CYCLOPENTOLATE HCL 1% OPHTH SOLN 2 ML BOTTLE OP SCH ×3 (06:55→07:05)
[2023-05-01] MEDS: OFLOXACIN 0.3% OPHTHALMIC SOLUTION 5 ML BOTTLE OP SCH ×3 (06:55→07:05)
[2023-05-01] MEDS: PHENYLEPHRINE 2.5% OPHTH SOLN 15 ML BOTTLE OP SCH ×3 (06:55→07:05)
[2023-05-01] MEDS: TROPICAMIDE 1% OPHTH SOLN 15 ML BOTTLE OP SCH ×3 (06:55→07:05)
[2023-05-01] MEDS ORDERED: BUPIVACAINE HCL/PF 0.75% 10 ML VIAL ONE (07:36)
[2023-05-01] MEDS ORDERED: LIDOCAINE HCL/PF 2% SDV 5ML VIAL ONE (07:36)
[2023-05-01] MEDS ORDERED: LIDOCAINE HCL/PF 1% SDV 5ML VIAL ONE (07:36)
[2023-05-01] MEDS ORDERED: VANCOMYCIN 500 MG VIAL (RESTRICTED TO ID ONLY) ONE (07:36)
[2023-05-01] MEDS ORDERED: POVIDONE-IODINE 5% OPHTHALMIC PREP 30 ML SOLUTION ONE (07:51)
[2023-05-01] MEDS ORDERED: PROPOFOL 20 ML ONE (08:07)
[2023-05-01] MEDS ORDERED: BUPIVACAINE HCL/PF 0.75% 10 ML VIAL RB ONE (08:17)
[2023-05-01] MEDS ORDERED: LIDOCAINE HCL/PF 2% SDV 5ML VIAL INF ONE (08:17)
[2023-05-01] MEDS ORDERED: POVIDONE-IODINE 5% OPHTHALMIC PREP 30 ML SOLUTION OD ONE (08:20)
[2023-05-01] MEDS ORDERED: BSS (NA/CA/MG/K) BALANCED SALT SOLUTION OPHTH SOLN 15 ML BOTTLE IO ONE (08:35)
[2023-05-01] MEDS ORDERED: LIDOCAINE HCL 1% PRESERVATIVE FREE - 30ML VIAL IO ONE (08:36)
[2023-05-01] MEDS ORDERED: CHONDROITIN SU A/HYALUR SOD 1 KIT IO ONE (08:37)
[2023-05-01] MEDS ORDERED: EPINEPHrine/PF 1 MG/1 ML (1:1,000) AMPULE IO ONE (08:39)
[2023-05-01 09:56] VITALS: BP 136/75; RESP 18
[2023-05-01 09:57] VITALS: PULSE 57; TEMP 98
== END 2023-05-01 09:30 | disposition home or self-care (01) ==
LOC: JASU-SURG 04:15
PROVIDERS: ATTEND Ophthalmology
PROC: 08RJ3JZ Replacement of Right Lens with Synthetic Substitute, Percutaneous Approach (ICD-10-PCS; principal; 2023-05-01 08:00)
DX: H26.9 Unspecified cataract (principal)
CPT/HCPCS: V2632

== ENCOUNTER 2024-11-22 01:44 | Emergency (ER) | payer BC ==
[2024-11-22 01:57] VITALS: BMI 30.3
[2024-11-22] MEDS ORDERED: ACETAMINOPHEN INJECTION 100 ML ONE (03:06)
[2024-11-22] MEDS: SODIUM CHLORIDE 0.9% 500 ML INFUS.BAG IV ONE (03:10)
[2024-11-22] MEDS: ACETAMINOPHEN 1000 MG/100 ML BAG IVPB ONE (03:11)
[2024-11-22 03:16] LABS: MCHC 31.6 g/dl (32.3-36.5); MEAN CELL VOLUME 96.8 fl (79.0-92.2); MEAN PLT VOLUME 9.0 fl (9.4-12.4); RDW 13.0 % (12.2-16.4)
[2024-11-22 06:25] LABS: ALK PHOS 56.0 U/L (40-150); CO2 24.0 mmol/L (21-32); CREATININE 1.08 mg/dL (0.55-1.3); GLUCOSE,RANDOM 119.0 mg/dL (74-106); SGOT/AST 58.0 U/L (5-34); SGPT/ALT 40.0 U/L (0-55); TOT PROT 7.4 g/dl (6.4-8.2)
[2024-11-22 06:30] VITALS: BP 158/89; PULSE 75; RESP 17
[2024-11-22 06:32] VITALS: TEMP 98
== END 2024-11-22 06:47 | disposition home or self-care (01) ==
LOC: JER 01:44
PROC: 3E033NZ Introduction of Analgesics, Hypnotics, Sedatives into Peripheral Vein, Percutaneous Approach (ICD-10-PCS; principal; 2024-11-22)
DX: R25.2 Cramp and spasm (principal)
CPT/HCPCS: 36415; 71045-TC-FY; 80053; 82550; 83735; 84100; 84484; 85027; 93005; 93010; 99285-25